=== PATIENT | female | born 1990 | race African-American/Black ===

== ENCOUNTER 2018-01-09 17:26 | Emergency (ER) | payer OTHER ==
[~2018-01-09] VITALS: Ht 162.6 cm; Wt 63.5 kg
[2018-01-09 17:37] VITALS: Ht 162.6 cm; Wt 63.5 kg
[2018-01-09 19:03] VITALS: BP 118/72
== END 2018-01-09 19:03 | disposition home or self-care (01) ==
LOC: ED 17:26
DX: S61.211A Laceration without foreign body of left index finger without damage to nail, initial encounter (principal); W26.0XXA Contact with knife, initial encounter; Y93.89 Activity, other specified; Y92.098 Other place in other non-institutional residence as the place of occurrence of the external cause; Y99.8 Other external cause status
CPT/HCPCS: 90715

== ENCOUNTER 2018-01-29 19:47 | Inpatient (IN) | payer OTHER ==
[~2018-01-29] VITALS: Ht 162.6 cm; Wt 64.9 kg
[2018-01-29 20:58] LABS: PLATELET COUNT 198 x10^3mcL (130-400)
[2018-01-29 21:02] LABS: RED CELL DISTRIBUTION WIDTH 21.3 % (11.5-14.5)
[2018-01-29 21:16] LABS: BAND NEUTROPHIL 4 % (0-10); BASOPHIL 0 % (0-2); MONOCYTE 5 % (0-7); SEGMENTED NEUTROPHILS 54 % (37-75); ovalocyte/elliptocyte 2+; rbc morphology (normal/abnorm) ABNORMAL (NORMAL); target cell (codocyte) 1+
[2018-01-29 21:17] LABS: PLATELET MORPHOLOGY PLATELETS NORMAL; schistocyte (helmet cell) 1+; tear drop cell (dacryocyte) 1+
[2018-01-29 22:05] LABS: CALCIUM 8.7 mg/dL (8.5-10.1); CARBON DIOXIDE 25.1 mmol/L (21-32); CHLORIDE SERUM 106 mmol/L (98-107); CREATININE SERUM 0.8 mg/dL (0.6-1.0); GFR1 > 60 mL/min; GLUCOSE SERUM 99 mg/dL (74-106); POTASSIUM SERUM 3.7 mmol/L (3.5-5.1); SODIUM SERUM 139 mmol/L (136-145)
[2018-01-29 22:12] LABS: ALKALINE PHOSPHATASE 39 U/L (46-116); ALT/SGPT 17 U/L (14-59); AST/SGOT 10 U/L (15-37); BILIRUBIN TOTAL 0.23 mg/dL (0.20-1.00); TOTAL PROTEIN, SERUM 7.9 g/dL (6.4-8.2)
[2018-01-29 23:41] VITALS: BP 113/59
[2018-01-29 23:43] VITALS: Ht 162.6 cm; Wt 64.9 kg
[2018-01-29 23:56] LABS: IRON 436 ug/dL (50-170); TOTAL IRON BINDING CAPACITY 451 ug/dL (250-450)
[2018-01-29 23:58] LABS: RED BLOOD CELLS 3.37 M/mm3 (4.10-5.10)
[2018-01-30 08:10] VITALS: BP 96/48
[2018-01-30 09:30] VITALS: BP 105/48
[2018-01-30 13:35] LABS: PLATELET COUNT 187 x10^3mcL (130-400)
[2018-01-30 13:38] LABS: RED CELL DISTRIBUTION WIDTH 28.6 % (11.5-14.5)
[2018-01-30 13:47] LABS: BAND NEUTROPHIL 9 % (0-10); BASOPHIL 0 % (0-2); MONOCYTE 9 % (0-7); SEGMENTED NEUTROPHILS 56 % (37-75)
[2018-01-30 13:52] LABS: ovalocyte/elliptocyte 2+; rbc morphology (normal/abnorm) ABNORMAL (NORMAL); schistocyte (helmet cell) 1+; target cell (codocyte) 1+
[2018-01-30 13:53] LABS: PLATELET MORPHOLOGY PLATELETS NORMAL
[2018-01-30 14:17] VITALS: BP 105/48
== END 2018-01-30 15:00 | disposition home or self-care (01) | DRG 663 ==
LOC: ED 19:47 → MU 22:28
PROVIDERS: Emergency Medicine; Internal Medicine
PROC: 30233N1 Transfusion of Nonautologous Red Blood Cells into Peripheral Vein, Percutaneous Approach (ICD-10-PCS; principal; 2018-01-29)
DX: D50.9 Iron deficiency anemia, unspecified (principal)
CPT/HCPCS: J7030; J7050; P9016